=== PATIENT | female | born 1960 | race Two or more races ===

== ENCOUNTER 2023-06-25 09:44 | Emergency (ER) | payer MEDICARE, MEDICAID ==
[2023-06-25] MEDS: Acetaminophen/HYDROcodone 325-5 MG Tab PO ONE (10:26)
[2023-06-25 11:09] LABS: AMPHETAMINES SCREEN, URINE NEGATIVE (NEGATIVE); BARBITURATE SCREEN,URINE NEGATIVE (NEGATIVE); BENZODIAZEPINES SCREEN,URINE NEGATIVE (NEGATIVE); BUPRENORPHINE SCREEN,URINE NEGATIVE (NEGATIVE); COCAINE METABOLITES,URINE NEGATIVE (NEGATIVE); METHADONE SCREEN, URINE NEGATIVE (NEGATIVE); METHAMPHETAMINE SCREEN, URINE NEGATIVE (NEGATIVE); OXYCODONE SCREEN,URINE NEGATIVE (NEGATIVE); PCP SCREEN,URINE NEGATIVE (NEGATIVE); THC SCREEN,URINE 50 NG/ML NEGATIVE (NEGATIVE)
== END 2023-06-25 11:46 | disposition home or self-care (01) ==
LOC: VM.ED 09:44
DX: S40.022A Contusion of left upper arm, initial encounter (principal); S80.01XA Contusion of right knee, initial encounter; Z91.030 Bee allergy status; Z88.1 Allergy status to other antibiotic agents; Z91.018 Allergy to other foods; Z88.8 Allergy status to other drugs, medicaments and biological substances; W19.XXXA Unspecified fall, initial encounter
CPT/HCPCS: 73060-LT; 73090-LT; 73562-RT; 80305-QW; 99283; A9270-GY